=== PATIENT | female | born 1970 | race Caucasian/White ===

== ENCOUNTER → 2017-07-24 | Emergency (ER) | payer OTHER ==
[~2017-07-24] VITALS: Ht 154.9 cm; Wt 77.1 kg
== END | disposition home or self-care (01) ==
LOC: ER 14:47
DX: R10.12 Left upper quadrant pain (principal)

== ENCOUNTER 2020-04-29 16:31 | Emergency (ER) | payer OTHER ==
[~2020-04-29] VITALS: Ht 157.5 cm; Wt 76.2 kg
[2020-04-30] MEDS ORDERED: CIPRO500 MG PO (07:21)
[2020-04-30] MEDS ORDERED: INTESTINEX680 M1 PO (07:22)
[2020-04-30] MEDS ORDERED: FLAGYL500MG PO (07:22)
== END 2020-04-30 08:12 | disposition home or self-care (01) ==
LOC: ER 16:31
DX: K57.32 Diverticulitis of large intestine without perforation or abscess without bleeding (principal); D25.1 Intramural leiomyoma of uterus; R10.2 Pelvic and perineal pain

== ENCOUNTER 2020-10-12 11:28 | Inpatient (IN) | payer OTHER ==
[~2020-10-12] VITALS: Ht 154.9 cm; Wt 5.1 kg
[~2020-10-12 11:28] MED LIST: CIPRO500 MG PO; FLAGYL500MG PO; INTESTINEX680 M1 PO
== END 2020-10-15 21:16 | disposition home or self-care (01) | DRG 392 ==
LOC: ER 11:28 → SEC-K 18:39 → MEDI 18:39
PROVIDERS: ADMIT Internal Medicine; ATTEND Internal Medicine
PROC: BW2110Z Computerized Tomography (CT Scan) of Abdomen and Pelvis using Low Osmolar Contrast, Unenhanced and Enhanced (ICD-10-PCS; principal; 2020-10-12)
DX: K57.32 Diverticulitis of large intestine without perforation or abscess without bleeding (principal); Z20.822 Contact with and (suspected) exposure to COVID-19

== ENCOUNTER 2023-05-03 22:31 | Emergency (ER) | payer OTHER ==
[~2023-05-03] VITALS: Ht 154.9 cm; Wt 79.4 kg
[2023-05-03] MEDS ORDERED: CLARITIN10 M1 (22:38)
[2023-05-03] MEDS ORDERED: NEURONTIN300 MG PO (22:38)
[2023-05-03] MEDS ORDERED: NORFLEX100MG PO (22:39)
== END 2023-05-03 23:23 | disposition home or self-care (01) ==
LOC: ER 22:31
DX: M54.9 Dorsalgia, unspecified (principal); R07.89 Other chest pain

== ENCOUNTER 2025-02-25 16:06 | Emergency (ER) | payer OTHER ==
[~2025-02-25] VITALS: Ht 154.9 cm; Wt 79.4 kg
[~2025-02-25 16:06] MED LIST changes: +CLARITIN10 M1; +NEURONTIN300 MG PO; +NORFLEX100MG PO
[2025-02-25 17:22] VITALS: BP 133/76; O2SAT 99
[2025-02-25] MEDS ORDERED: KETOROLAC TROMETHAMINE 30 MG VIAL IM STA (20:05)
[2025-02-25] MEDS ORDERED: ORPHENADRINE CITRATE 30 MG/ML AMPUL IM STA (20:06)
[2025-02-25] MEDS ORDERED: KETOROLAC TROMETHAMINE 30 MG VIAL ONE (20:24)
[2025-02-25] MEDS ORDERED: ORPHENADRINE CITRATE 30 MG/ML AMPUL ONE (20:25)
[2025-02-25 20:29] LABS: BASO % 0.8 % (0.1-1.2); EOS # 0.16 (0.04-0.54); EOS % 1.6 % (0.7-7.0); LYMPH # 2.59 (1.18-3.74); LYMPH % 26.7 % (19.3-53.1); MEAN PLATELET VOLUME 9.70 fl (9.4-12.4); MONO # 0.62 (0.24-0.82); MONO % 6.4 % (4.7-12.5); NEUT # 6.22 (1.56-6.13); NEUT % 64.1 % (34.0-71.1); RED CELL DISTRIBUTION WIDTH 13.9 % (11.6-14.4)
[2025-02-25 20:51] LABS: URINE APPEARANCE Clear; URINE BILIRRUBIN Negative (NEGATIVE); URINE BLOOD Negative; URINE COLOR Yellow; URINE GLUCOSE Negative (NEGATIVE); URINE KETONE Negative (NEGATIVE); URINE LEUKOCYTE Negative; URINE NITRATE Negative; URINE PROTEIN Negative (NEGATIVE); URINE UROBILINOGEN 0.2 E.U./dl
[2025-02-25 20:55] LABS: URINE BACTERIA 58.7 uL (0.0-1933); URINE EPITHELIAL CELLS 14.6 uL (0.0-38.8); URINE RBC 50.1 uL (0.0-20.8); URINE WBC 8.4 uL (0.0-23.2)
[2025-02-25 21:09] LABS: URINE CAST 0.00 uL (0.0-1.40)
[2025-02-25] MEDS ORDERED: DICLOFENAC POTA50 MG PO (23:00)
[2025-02-25] MEDS ORDERED: ZANAFLEX4 M1 PO (23:00)
== END 2025-02-25 23:17 | disposition home or self-care (01) ==
LOC: ER 16:06
PROVIDERS: General Practice
DX: M62.838 Other muscle spasm (principal); M54.51 Vertebrogenic low back pain

== ENCOUNTER 2025-03-06 14:02 | Emergency (ER) | payer OTHER ==
[~2025-03-06] VITALS: Ht 154.9 cm; Wt 79.4 kg
[~2025-03-06 14:02] MED LIST changes: +DICLOFENAC POTA50 MG PO; +ZANAFLEX4 M1 PO
[2025-03-06] MEDS ORDERED: FLONASE16 GM NS (14:19)
[2025-03-06] MEDS ORDERED: KETOROLAC TROMETHAMINE 60 MG VIAL IM STA (15:43)
[2025-03-06] MEDS ORDERED: 0.9 % SODIUM CHLORIDE 1,000 ML IV STA (15:44)
[2025-03-06] MEDS ORDERED: KETOROLAC TROMETHAMINE 60 MG VIAL IM ONE (16:09)
[2025-03-06 17:16] LABS: BASO % 0.8 % (0.1-1.2); EOS # 0.10 (0.04-0.54); EOS % 1.2 % (0.7-7.0); LYMPH # 2.10 (1.18-3.74); LYMPH % 24.6 % (19.3-53.1); MEAN PLATELET VOLUME 9.40 fl (9.4-12.4); MONO # 0.58 (0.24-0.82); MONO % 6.8 % (4.7-12.5); NEUT # 5.66 (1.56-6.13); NEUT % 66.4 % (34.0-71.1); RED CELL DISTRIBUTION WIDTH 13.8 % (11.6-14.4)
[2025-03-06 17:36] LABS: URINE APPEARANCE Clear; URINE BILIRRUBIN Negative (NEGATIVE); URINE BLOOD Negative; URINE COLOR Yellow; URINE GLUCOSE Negative (NEGATIVE); URINE KETONE Negative (NEGATIVE); URINE LEUKOCYTE Trace; URINE NITRATE Negative; URINE PROTEIN Negative (NEGATIVE); URINE UROBILINOGEN 0.2 E.U./dl
[2025-03-06 17:41] LABS: URINE BACTERIA 79.1 uL (0.0-1933); URINE EPITHELIAL CELLS 26.1 uL (0.0-38.8); URINE RBC 47.9 uL (0.0-20.8); URINE WBC 8.7 uL (0.0-23.2)
[2025-03-06 17:46] LABS: BUN CREA RATIO 16.0 (7.0-25.0); CREATININE SERUM 0.82 mg/dL (0.55-1.02); GFR 72.65; GLUCOSE FASTING 96.0 mg/dL (65-100); OSMOLALITY SERUM 281.0 MOSM/KG (275-295)
[2025-03-06 17:48] LABS: URINE CAST 0.00 uL (0.0-1.40)
== END 2025-03-06 18:46 | disposition home or self-care (01) ==
LOC: ER 14:09
PROVIDERS: General Practice
DX: M54.9 Dorsalgia, unspecified (principal); R31.9 Hematuria, unspecified